=== PATIENT | female | born 1995 | race African-American/Black ===

== ENCOUNTER 2019-12-03 06:58 | Emergency (ER) | payer MEDICAID, OTHER ==
[~2019-12-03] VITALS: Ht 167.6 cm; Wt 52.2 kg
--- NOTE | 2019-12-03 07:12 | NUR ---
CAME IN FOR SPOTTING x 18 DAYS AND CLOTS. PT 8 WEEKS . SENT BY PMD FOR U/S TO DETERMINE HIGH RISK PREG, A0, TO ER 16, HOOKED TO MONITOR, CHANGED TO HOSP GOWN, PROVIDED W WARM BLANKET, AWAITING MD MELCHOR.
[2019-12-03 08:28] LABS: BASOPHILS % (AUTO) 1.1 % (0.0-2.0); HEMATOCRIT 42 % (33-45); HEMOGLOBIN 14.1 g/dL (11.5-14.8); LYMPHOCYTES # (AUTO) 1.1 /CMM (0.8-4.8); LYMPHOCYTES % (AUTO) 24.7 % (20.0-44.0); MEAN CORPUSCULAR HGB CONC 34 g/dl (31.0-36.0); MEAN CORPUSCULAR VOLUME 94 fL (82-100); MONOCYTES # (AUTO) 0.4 /CMM (0.1-1.30); MONOCYTES % (AUTO) 9.4 % (2.0-12.0); NEUTROPHILS # (AUTO) 2.7 /CMM (1.8-8.9); NEUTROPHILS % (AUTO) 63.8 % (43.0-81.0); PLATELET COUNT (AUTO) 245 /CMM (150-450); RED BLOOD CELL COUNT(AUTO) 4.44 MIL/uL (4.0-5.2); WHITE BLOOD COUNT (AUTO) 4.3 K/uL (4.3-11.0)
[2019-12-03 08:34] LABS: CALCIUM, SERUM 9.4 mg/dL (8.5-10.1); CREATININE 0.7 mg/dL (0.6-1.3)
--- NOTE | 2019-12-03 08:47 | NUR ---
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
[2019-12-03 09:00] LABS: ALBUMIN 4.1 g/dL (3.4-5.0); TOTAL PROTEIN, SERUM 7.5 g/dL (6.4-8.2)
[2019-12-03] MEDS ORDERED: ISOT10CA PO (10:37)
--- NOTE | 2019-12-03 13:48 | NUR ---
Patient discharged to home in stable condition. Written and verbal after care instructions given. Patient verbalizes understanding of instruction.
[2019-12-03 14:42] VITALS: BP 131/68
== END 2019-12-03 13:50 | disposition home or self-care (01) ==
LOC: ER 07:02
DX: O00.90 Unspecified ectopic pregnancy without intrauterine pregnancy (principal); E28.2 Polycystic ovarian syndrome; Z98.890 Other specified postprocedural states; Z79.899 Other long term (current) drug therapy
CPT/HCPCS: 36415; 76856-TC; 80053-TC; 84702-TC; 85025-TC

== ENCOUNTER 2021-06-02 14:39 | Emergency (ER) | payer SELFPAY ==
[~2021-06-02] VITALS: Ht 167.6 cm; Wt 52.2 kg
[~2021-06-02 14:39] MED LIST: ISOT10CA PO
[2021-06-02 14:55] VITALS: BP 126/91
--- NOTE | 2021-06-02 15:53 | NUR ---
SEEN AND EXMAINED BY TALIA BRAXTON.
[2021-06-02] MEDS ORDERED: TDAP [DIPH/PERTUSSIS/TET] 0.5 ML VIAL IM ONE (16:07)
[2021-06-02] MEDS: TDAP [DIPH/PERTUSSIS/TET] 0.5 ML VIAL IM ONE (16:10)
--- NOTE | 2021-06-02 16:10 | NUR ---
DEANA LEE AT BEDSIDE FOR WOUND CLEANING.
--- NOTE | 2021-06-02 16:29 | NUR ---
Patient discharged to home in stable condition. Written and verbal after care instructions given. Patient verbalizes understanding of instruction.
== END 2021-06-02 16:30 | disposition home or self-care (01) ==
LOC: ER 14:42
DX: S01.81XA Laceration without foreign body of other part of head, initial encounter (principal); Z98.890 Other specified postprocedural states; V43.62XA Car passenger injured in collision with other type car in traffic accident, initial encounter; Y93.89 Activity, other specified; Y92.413 State road as the place of occurrence of the external cause; Y99.8 Other external cause status
CPT/HCPCS: 12011; 90471; 90715; 99283; A6403